=== PATIENT | male | born 1960 | race Caucasian/White ===

== ENCOUNTER 2016-06-28 12:04 | Emergency (ER) | payer BC, OTHER ==
[~2016-06-28 12:04] MED LIST: ALBUTEROL IN200 PUFF INH; CHILDRENS CHEWA81 MG PO; COZAAR100 MG PO; JANUVIA100 MG PO; K-TAB ER20 MEQ PO; LASIX40 MG PO; LIPITOR20 MG PO; LOPID600 MG PO; METFORMIN HCL1000 MG PO; NEXIUM40 MG PO; NORVASC5 MG PO
[2016-06-28 13:19] LABS: BASO % 0.3 % (0.2-1.2); EOS # 0.2 10_X3_uL (0.0-0.5); GRAN # 5.8 10_X3_uL (1.8-5.4); GRAN % 73.3 % (34.0-67.9); HEMATOCRIT 41.7 % (40-51); HEMOGLOBIN 14.2 g/dL (13.7-17.5); LYMPH # 1.1 10_X3_uL (1.3-3.6); LYMPH % 13.4 % (21.8-53.1); MEAN CORPUSCULAR HEMOGLOBIN 30.6 pg (27.0-33.0); MEAN CORPUSCULAR HGB CONC 34.1 g/dL (32.0-36.0); MEAN CORPUSCULAR VOLUME 89.9 fL (79-92); MEAN PLATELET VOLUME 10.8 fl (7.5-11.5); MONO # 0.9 10_X3_uL (0.3-0.8); PLATELET COUNT 196 x10_3/uL (163-337); RED BLOOD COUNT 4.64 x10_6/uL (4.6-6.1); WHITE BLOOD COUNT 7.9 x10_3/uL (4.2-9.1)
[2016-06-28 13:35] LABS: ALKALINE PHOSPHATASE 86 U/L (50-136); ALT/SGPT 15 U/L (7.53-40.17); AST/SGOT 21 U/L (6.66-35.34); BILIRUBIN,TOTAL 0.44 mg/dL (0.0-1.0); BLOOD UREA NITROGEN 26 mg/dL (7-18); CALCIUM 8.4 mg/dL (8.7-10.7); CARBON DIOXIDE 23 mmol/L (21-32); CREATININE 1.1 mg/dL (0.6-1.3); GLUCOSE,RANDOM 136 mg/dL (70-99); POTASSIUM 4.1 mmol/L (3.5-5.1); SODIUM 139 mmol/L (136-145); TOTAL PROTEIN 5.5 gm/dL (6.4-8.2)
== END 2016-06-28 16:17 | disposition home or self-care (01) ==
LOC: ER 12:04
PROVIDERS: Emergency Medicine
DX: R55 Syncope and collapse (principal); E78.5 Hyperlipidemia, unspecified; E11.9 Type 2 diabetes mellitus without complications; I10 Essential (primary) hypertension; R51 Headache; M10.9 Gout, unspecified; R53.1 Weakness; Z88.8 Allergy status to other drugs, medicaments and biological substances; Z79.899 Other long term (current) drug therapy; Z79.84 Long term (current) use of oral hypoglycemic drugs
CPT/HCPCS: 36415; 70450; 80053; 82550; 82553; 85025; 93005; 96360; 96361; 99070; 99284-25